=== PATIENT | female | born 2000 | race Caucasian/White ===

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

== ENCOUNTER 2020-04-04 15:39 | Emergency (ER) | payer MEDICAID ==
[~2020-04-04] VITALS: Ht 157.5 cm; Wt 65.9 kg
[2020-04-04 18:25] VITALS: BP 110/57; PULSE 74; TEMP 97.6
[2020-04-04] MEDS ORDERED: CLEOCIN HCL300 MG PO (18:37)
== END 2020-04-04 18:53 | disposition home or self-care (01) ==
LOC: COL.ER 15:39
DX: O23.92 Unspecified genitourinary tract infection in pregnancy, second trimester (principal); Z3A.18 18 weeks gestation of pregnancy

== ENCOUNTER 2020-04-07 10:33 | Emergency (ER) | payer MEDICAID ==
[~2020-04-07] VITALS: Ht 157.5 cm; Wt 65.9 kg
[~2020-04-07 10:33] MED LIST changes: +CLEOCIN HCL300 MG PO
[2020-04-07 10:40] VITALS: TEMP 97.6
[2020-04-07] MEDS ORDERED: NORCO 325 MG-51 TAB PO (12:05)
[2020-04-07 12:25] VITALS: BP 137/99; PULSE 90
== END 2020-04-07 12:30 | disposition home or self-care (01) ==
LOC: COL.ER 10:33
DX: O23.592 Infection of other part of genital tract in pregnancy, second trimester (principal); Z3A.19 19 weeks gestation of pregnancy
CPT/HCPCS: J3010; J7030

== ENCOUNTER 2020-06-16 14:41 | Outpatient (CLI) | payer MEDICAID ==
[~2020-06-16] VITALS: Ht 157.5 cm; Wt 74.5 kg
--- NOTE | 2020-06-16 13:20 | NUR ---
Pt here from ER with c/o pelvic pressure, abdominal pain and back pain. Pt states the abdominal pain shoots down towards her groin area. Pt states "I bent over at work this morning and feels like the baby dropped." 29.0 weeks gestation, G1. Pt to [facility], explained. SVE: closed/thick/high. Assessment complete. Pt with hx of kidney cysts and MRSA, but has had 2 negative cx during . Pt encouraged to po hydrate at this time. VSS, FHR reactive. Will notify physician.
[2020-06-16 13:30] VITALS: BP 133/76; PULSE 111; TEMP 98.7
--- NOTE | 2020-06-16 14:12 | NUR ---
Dr Goel called and notified. See physician notification. 1425:SVE: no cervical change made. 1455:FHR baseline has been 130bpm with moderate variability and accels noted. Pt po hdyrated, drank 30oz of water. Pt states feels better and wants to return back to work today.
[2020-06-16 14:35] VITALS: BP 116/70; PULSE 80
[~2020-06-16 14:41] MED LIST changes: +NORCO 325 MG-51 TAB PO
--- NOTE | 2020-06-16 15:00 | NUR ---
Physician here and FHR strip reviewed. Ok to DC home per Dr Goel at this time and pt to call the [facility] office Thursday to schedule an Ultrasound. DC instructions given, pt verbalizes understanding. Pt states she is feeling so much better, denies any pressure or pain. Encouraged pt to increase water intake and call with any concerns. Pt to personal vehicle.
== END 2020-06-16 15:00 | disposition home or self-care (01) ==
LOC: LDR 14:41 → LDRO 14:41
DX: R10.2 Pelvic and perineal pain (principal); M54.5 Low back pain; R10.9 Unspecified abdominal pain; O26.893 Other specified pregnancy related conditions, third trimester; Z3A.29 29 weeks gestation of pregnancy

== ENCOUNTER 2020-06-18 21:18 | Outpatient (CLI) | payer MEDICAID ==
[~2020-06-18] VITALS: Ht 157.5 cm; Wt 74.5 kg
--- NOTE | 2020-06-18 21:10 | NUR ---
Ambulatory to unit for labor assessment, accompanied by signifiant other. Oriented to room, monitor, plan of care. Pt reports here on L&D Sat 06/16 for vaginal bleeding. Reports "I woke up from my nap at 1930 and had a small blood clot in the toilet, still bleeding some" SVE with bright red blood noted on glove, amnio trace coated to blue.
--- NOTE | 2020-06-18 21:16 | NUR ---
SVE FT/high, posterior. Pt reports having had intercourse today and states "I've never had any bleeding with sex before. Explained topt that during some vaginal/cervical tissue is more prone to bleeding, verbalizes understanding.
[2020-06-18 21:22] VITALS: BP 131/67; PULSE 97
[2020-06-18 22:00] VITALS: BP 114/58; PULSE 80
--- NOTE | 2020-06-18 22:25 | NUR ---
Repeat SVE with no changes noted. Dr Godwin @ L&D desk, report of unchanged SVE and no increased bleeding or LOF noted.
--- NOTE | 2020-06-18 22:35 | NUR ---
discharge orders reviewed with pt and significant other, questions invited and answered. Ambulatory off unit.
== END 2020-06-18 22:35 | disposition home or self-care (01) ==
LOC: LDRO 21:18
DX: O46.8X3 Other antepartum hemorrhage, third trimester (principal); Z3A.29 29 weeks gestation of pregnancy

== ENCOUNTER 2020-09-01 23:37 | Inpatient (IN) | payer MEDICAID ==
[~2020-09-01] VITALS: Ht 157.5 cm; Wt 86.8 kg
--- NOTE | 2020-09-01 23:45 | NUR ---
Pt arrived on unit ambulatory and with complaints of SROM around 183. Pt denies any contractions or vaginal bleeding and reports normal movement. EFM and toco monitors started. Vital signs WNL. SVE by this RN with positive amnio-trace. Dr. Vazquez on the unit. Information reviewed. Labor admission orders received. Plan of care reviewed with pt and boyfriend.
[2020-09-02] VITALS (69 sets, daily range): BP systolic 103–160; BP diastolic 51–131; PULSE 50–128; TEMP 97–98.8
[2020-09-02 00:33] LABS: BASO % 0.3 % (0.0-2.0); EOS % 8.6 % (0-4.0); GRAN # 6.6 (1.4-6.5); GRAN % 58.2 % (42.2-75.2); HEMOGLOBIN 11.7 g/dl (12.0-15.0); LYMPH % 26.1 % (20.0-51.0); MEAN CELL VOLUME 81 fl (80.0-95.0); MEAN CORPUSCULAR HEMOGLOBIN 26 pg (26.0-32.0); MEAN CORPUSCULAR HGB CONC 32 g/dl (33.0-37.0); MEAN PLATELET VOLUME 11.1 fl (7.4-10.4); MONO # 0.7 (0.1-0.6); MONO % 6.4 % (1.7-9.3); PLATELET COUNT 257 K/mm3 (130-400); RED BLOOD COUNT 4.48 M/mm3 (4.10-5.30); REDCELL DISTRIBUTION WIDTH-CV 13.5 % (11.5-14.5)
[2020-09-02 00:34] LABS: HEMATOCRIT 36.4 % (35.0-45.0)
--- NOTE | 2020-09-02 00:40 | NUR ---
Pt off EFM to ambulate.
--- NOTE | 2020-09-02 06:47 | NUR ---
PATIENT REFUSED COVID 19 SWAB
--- NOTE | 2020-09-02 07:28 | NUR ---
[id number] INTERMITTENT TRACING DURING EPIDURAL PLACEMENT. AUDIBLE ON MONITOR
--- NOTE | 2020-09-02 09:30 | NUR ---
LATE NOTED AT 0925
--- NOTE | 2020-09-02 15:09 | NUR ---
patient sve 1455 then LL, RL, O2 APPLIED, OXYTOCIN OFF, FSE PLACED BY ALON FELDMAN, PATIENT IN KNEE CHEST AT 1500
--- NOTE | 2020-09-02 15:27 | NUR ---
fse [id number] then to external monitor due to irrribility, sticker for leg plate replaced 3 times. patient to [facility] at 5547
--- NOTE | 2020-09-02 15:35 | NUR ---
PROLONGED DECEL TO 60S THEN TO 90S 1455--1506
--- NOTE | 2020-09-02 17:42 | NUR ---
PATIENT WR TO WR, DECEL, PATIENT RL TO LL, FSE PLACED AND WOKRED FROM [id number]. ATIENT IN KNEE CHEST. O2 PLACED ON PATIENT
--- NOTE | 2020-09-02 17:52 | NUR ---
C/S CALLEED BY DR ANDREW AT THIS TIME
[2020-09-03 05:00] VITALS: BP 127/69; PULSE 87; TEMP 98.4
--- NOTE | 2020-09-03 05:00 | NUR ---
Pt up to the bathroom with standby assist and without complications. Freedman removed. Lupe-care done.
[2020-09-03 08:27] VITALS: BP 120/55; PULSE 93; TEMP 98.1
[2020-09-03 12:15] VITALS: BP 128/66; PULSE 83
--- NOTE | 2020-09-03 14:22 | NUR ---
Initial visit; Parents thanked Health And Safety Representative for offering congratulations and God's blessings for the of their son. Health And Safety Representative thanked family for choosing [facility].
--- NOTE | 2020-09-03 14:23 | NUR ---
Initial visit attempt; Physician with patient, [employer] Tech left card of congratulations and information regarding the availability of spiritual care at our hospital.
[2020-09-03 16:42] VITALS: BP 140/73; PULSE 100
[2020-09-03 20:30] VITALS: BP 130/60; PULSE 91; TEMP 97.4
[2020-09-04 00:10] VITALS: BP 130/64; PULSE 94; TEMP 98.1
[2020-09-04 04:30] VITALS: BP 123/61; PULSE 82; TEMP 97.9
[2020-09-04 07:45] VITALS: BP 142/81; PULSE 97; TEMP 97.7
--- NOTE | 2020-09-04 07:45 | NUR ---
Rests in bed, alert, holding baby. 0752 Ibuprofen 800 mg given as ordered.
[2020-09-04] MEDS ORDERED: MOTRIN 800800 MG/TAB PO (09:05)
[2020-09-04] MEDS ORDERED: PERCOCET 325 MG1 TA2 PO (09:06)
--- NOTE | 2020-09-04 10:00 | NUR ---
1005 Percocet 5/325 mg two given per request and as ordered.
[2020-09-04 16:00] VITALS: BP 121/56; PULSE 94; TEMP 97.9
[2020-09-04 20:40] VITALS: BP 128/61; PULSE 87; TEMP 98
[2020-09-05 08:34] VITALS: BP 96/69; PULSE 103; TEMP 98
[2020-09-05 16:25] VITALS: BP 139/70; PULSE 87; TEMP 98.3
== END 2020-09-05 18:25 | disposition home or self-care (01) | DRG 788 ==
LOC: LDRO 23:37 → LDR 09-02 00:04 → OB 09-02 00:04
PROVIDERS: ADMIT Obstetrics & Gynecology
PROC: 10D00Z1 Extraction of Products of Conception, Low, Open Approach (ICD-10-PCS; principal; 2020-09-02)
DX: O48.0 Post-term pregnancy (principal); Z3A.40 40 weeks gestation of pregnancy; Z37.0 Single live birth; O42.92 Full-term premature rupture of membranes, unspecified as to length of time between rupture and onset of labor; O76 Abnormality in fetal heart rate and rhythm complicating labor and delivery
CPT/HCPCS: J1100; J1885; J2400; J2405; J2590; J2704; J3010; J7120

== ENCOUNTER 2020-12-10 12:16 | Emergency (ER) | payer MEDICAID ==
[~2020-12-10] VITALS: Ht 157.5 cm; Wt 63.6 kg
[~2020-12-10 12:16] MED LIST changes: +MOTRIN 800800 MG/TAB PO; +PERCOCET 325 MG1 TA2 PO
[2020-12-10 12:24] VITALS: TEMP 98.1
[2020-12-10 12:46] LABS: COLLECTION METHOD CLEAN CATCH
[2020-12-10] MEDS ORDERED: ZOLOFT 25MG25 MG PO (12:54)
[2020-12-10 12:56] LABS: MUCOUS Present /lpf; PH 5 (5-8); URINE APPEARANCE Hazy; URINE BACTERIA None Seen /hpf; URINE BILIRUBIN Negative (NEGATIVE); URINE BLOOD Negative (NEGATIVE); URINE COLOR Yellow; URINE GLUCOSE Negative (NEGATIVE); URINE KETONE Negative (NEGATIVE); URINE LEUKOCYTE ESTERASE Negative (NEGATIVE); URINE NITRATE Negative (NEGATIVE); URINE PROTEIN(semi-quant) Negative (NEGATIVE); URINE RBC 0-2 /hpf; URINE UROBILINOGEN Negative (NEGATIVE)
[2020-12-10 13:03] LABS: BASO % 0.2 % (0.0-2.0); EOS # 0.5 (0.0-0.7); EOS % 4.9 % (0-4.0); GRAN # 6.9 (1.4-6.5); GRAN % 71.1 % (42.2-75.2); HEMATOCRIT 42.7 % (35.0-45.0); HEMOGLOBIN 13.5 g/dl (12.0-15.0); LYMPH # 1.6 (1.2-3.4); LYMPH % 16.5 % (20.0-51.0); MEAN CELL VOLUME 80 fl (80.0-95.0); MEAN CORPUSCULAR HEMOGLOBIN 25 pg (26.0-32.0); MEAN CORPUSCULAR HGB CONC 32 g/dl (33.0-37.0); MEAN PLATELET VOLUME 10.1 fl (7.4-10.4); MONO # 0.7 (0.1-0.6); MONO % 7.1 % (1.7-9.3); PLATELET COUNT 302 K/mm3 (130-400); RED BLOOD COUNT 5.33 M/mm3 (4.10-5.30); REDCELL DISTRIBUTION WIDTH-CV 13.9 % (11.5-14.5)
[2020-12-10 13:11] LABS: ALBUMIN 4.7 gm/dL (3.5-5.0); BILIRUBIN,TOTAL 0.5 mg/dL (0.0-1.0); CALCIUM 10.1 mg/dL (8.4-10.2); CREATININE, serum 0.71 (0.52-1.25); POTASSIUM 3.8 mmol/L (3.4-5.0); TOTAL PROTEIN 8.6 gm/dL (6.4-8.2)
[2020-12-10 15:03] VITALS: BP 143/74
[2020-12-10 15:44] VITALS: PULSE 68
[2020-12-10] MEDS ORDERED: CLEOCIN HCL300 MG PO (16:26)
== END 2020-12-10 15:44 | disposition home or self-care (01) ==
LOC: COL.ER 12:16
PROVIDERS: Physician Assistant
DX: N76.4 Abscess of vulva (principal); Z32.02 Encounter for pregnancy test, result negative
CPT/HCPCS: J3010; J7120

== ENCOUNTER 2021-10-26 05:45 | Emergency (ER) | payer MEDICAID ==
[~2021-10-26] VITALS: Ht 157.5 cm; Wt 63.6 kg
[~2021-10-26 05:45] MED LIST changes: +ZOLOFT 25MG25 MG PO
[2021-10-26 06:01] VITALS: TEMP 98.6
[2021-10-26 06:45] VITALS: BP 119/60; PULSE 84
== END 2021-10-26 06:45 | disposition home or self-care (01) ==
LOC: COL.ER 05:45
DX: N75.1 Abscess of Bartholin's gland (principal)